=== PATIENT | female | born 1990 | race Caucasian/White ===

== ENCOUNTER 2017-02-10 19:54 | Emergency (ER) | payer MEDICAID ==
[~2017-02-10] VITALS: Ht 167.6 cm; Wt 56.0 kg
[2017-02-10 20:01] VITALS: Ht 167.6 cm; Wt 56.0 kg
[2017-02-10] MEDS ORDERED: ACETAMINOPHEN 325 MG TAB PO STA (21:01)
[2017-02-10 21:54] LABS: ADD UMIC NO; UR ASCORBIC ACID 20 mg/dL (NEGATIVE); UR BILIRUBIN (Dip) NEGATIVE (NEGATIVE); UR BLOOD (Dip) NEGATIVE (NEGATIVE); UR CLARITY SLIGHTLY CLOUDY (CLEAR); UR COLOR YELLOW (YELLOW); UR GLUCOSE (Dip) NEGATIVE (NEGATIVE); UR KETONES (Dip) NEGATIVE (NEGATIVE); UR LEUKOCYTE ESTERASE (Dip) NEGATIVE Leu/ul (NEGATIVE); UR MUCUS FEW /HPF (NONE SEEN); UR NITRITE (Dip) NEGATIVE (NEGATIVE); UR RBC 2 /HPF (0-5); UR SPECIFIC GRAVITY (Dip) 1.024 (1.003-1.030); UR SQUAMOUS EPITHELIAL CELL FEW /HPF (FEW); UR TOTAL PROTEIN (Dip) NEGATIVE (NEGATIVE); UR UROBILINOGEN (Dip) NEGATIVE (NEGATIVE)
--- NOTE | 2017-02-10 21:54 | RADRPT ---
PROCEDURE: US OB. CLINICAL INDICATION: Size and dates , pelvic pain TECHNIQUE: Multiple sonographic images of the pelvis and gravid uterus were obtained. The images were reviewed on a PACS workstation. COMPARISON: No prior studies are available for comparison. FINDINGS: There is a single viable intrauterine gestation. Cardiac activity is present with 152 beats per min [place]. There is a transverse maternal left presentation. The placenta is anterior. There is no evidence for an abruption or placenta previa. Measurements were made in order to determine age. The results are as follows: BPD =4.7 cm HC =16.7 cm AC =14.4 cm FL =3.2 cm Estimated gestational age of approximately 19 weeks and 6 days based on ultrasound measurements. Clinical age: 19 weeks and 2 days. The estimated date of delivery is 07/01/17, based on ultrasound measurements. The EFW = 317 g, 78%, based on LMP age. RPTAT: AA IMPRESSION: Single viable intrauterine gestation of approximately 19 weeks and 6 days based on ultrasound measu rements. .Fran Guidry MD, MD Date Time Electronically viewed and signed by .Fran Guidry MD, on 02/10/2017 21:53 .S/
[2017-02-10 21:55] LABS: BASOPHILS % 0.2 % (0.0-2.0); EOSINOPHILS # 0.1 10^3/ul (0.0-0.5); EOSINOPHILS % 0.5 % (0.0-7.0); HEMATOCRIT 35.8 % (37.0-47.0); HEMOGLOBIN 12.1 g/dl (12.0-16.0); LYMPHOCYTES # 2.2 10^3/ul (0.8-2.9); MEAN CORPUSCULAR HEMOGLOBIN 30.6 pg (29.0-33.0); MEAN CORPUSCULAR HGB CONC 33.8 g/dl (32.0-37.0); MEAN CORPUSCULAR VOLUME 90.6 fl (82.0-101.0); MEAN PLATELET VOLUME 11.1 fl (7.4-10.4); MONOCYTE # 0.5 10^3/ul (0.3-0.9); MONOCYTES % 4.4 % (0.0-11.0); NEUTROPHIL # 9.4 10^3/ul (1.6-7.5); NEUTROPHILS % 76.4 % (39.0-77.0); PLATELET COUNT 225 10^3/UL (140-415); RED BLOOD COUNT 3.95 10^6/ul (4.20-5.40); RED CELL DISTRIBUTION WIDTH 12.7 % (11.5-14.5); WHITE BLOOD COUNT 12.3 10^3/ul (4.8-10.8)
[2017-02-10 22:16] LABS: ALBUMIN 3.7 g/dl (3.3-4.9); ALBUMIN/GLOBULIN RATIO 1.27; BILIRUBIN,INDIRECT 0.1 mg/dl (0-1.1); BILIRUBIN,TOTAL 0.1 mg/dl (0.2-1.3); CALCIUM 8.5 mg/dl (8.4-10.2); CREATININE 0.58 mg/dl (0.44-1.00); POTASSIUM 3.9 mmol/L (3.5-5.1); TOTAL PROTEIN 6.6 g/dl (6.1-8.1)
[2017-02-10 23:06] VITALS: BP 94/52; PULSE 77; RESP 20
--- NOTE | 2017-02-11 00:32 | ERD ---
ER Documentation Chief Complaint Date/Time DATE: 02/11/17 TIME: 00:26 Chief Complaint 19 wks , pelvic pain today HPI This patient is a 27-year-old female who is , last menstrual cycle of 2016, reportedly 19 weeks , presenting to the emergency department with complaints of 6 out of 10 bilateral suprapubic pain which is intermittent. She has had the symptoms in the past during this . Her ACTING PROFESSOR physician is Dr. Luis Felipe Galindo. She denies vaginal discharge, bleeding, fevers, chills , urinary symptoms, or other symptoms currently. ROS All systems reviewed and are negative except as per history of present illness. Allergies Allergies: Coded Allergies: No Known Allergy (Unverified , 02/10/17) PMhx/Soc Medical and Surgical Hx: pt denies Medical Hx, pt denies Surgical Hx History of Surgery: Yes (appy) Anesthesia Reaction: No Hx Neurological Disorder: No Hx Respiratory Disorders: No Hx Cardiac Disorders: No Hx Psychiatric Problems: No Hx Miscellaneous Medical Probl: No Hx Alcohol Use: No Hx Substance Use: No Hx Tobacco Use: No Smoking Status: Never smoker Physical Exam Vitals Vital Signs Date Time Temp Pulse Resp B/P Pulse Ox O2 Delivery O2 Flow Rate FiO2 02/10/17 23:06 77 20 94/52 95 Room Air 02/10/17 20:01 98.2 78 20 101/64 99 Physical Exam Const: Nontoxic, well-appearing female in no acute distress. Head: Atraumatic Eyes: Normal Conjunctiva ENT: Normal External Ears, Nose and Mouth. Neck: Full range of motion..~ No meningismus. Resp: Clear to auscultation bilaterally Cardio: Regular rate and rhythm, no murmurs Abd: Soft, non tender, non distended. Normal bowel sounds. Mild bilateral suprapubic tenderness to palpation. No rebound tenderness or guarding. No McBurney's point tenderness. No right upper quadrant tenderness. Negative Chairez sign. Skin: No petechiae or rashes Back: No midline or flank tenderness Ext: No cyanosis, or edema Neur: Awake and alert Psych: Normal Mood and Affect Result Diagram: 02/10/17213702/10/172137 Results 24 hrs Laboratory Tests Test 02/10/17 20:57 02/10/17 21:38 Urine Color YELLOW Urine Clarity SLIGHTLY CLOUDY Urine pH 6.0 Urine Specific [place] 1.024 Urine Ketones NEGATIVEmg/dL Urine Nitrite NEGATIVEmg/dL Urine Bilirubin NEGATIVEmg/dL Urine Urobilinogen NEGATIVEmg/dL Urine Leukocyte Esterase NEGATIVELeu/ul Urine Microscopic RBC 2/HPF Urine Microscopic WBC 0/HPF Urine Squamous Epithelial Cells FEW/HPF Urine Calcium Oxalate Crystals FEW/HPF Urine Mucus FEW/HPF Urine Hemoglobin NEGATIVEmg/dL Urine Glucose NEGATIVEmg/dL Urine Total Protein NEGATIVEmg/dl White Blood Count 12.310^3/ul Red Blood Count 3.9510^6/ul Hemoglobin 12.1g/dl Hematocrit 35.8% Mean Corpuscular Volume 90.6fl Mean Corpuscular Hemoglobin 30.6pg Mean Corpuscular Hemoglobin Concent 33.8g/dl Red Cell Distribution Width 12.7% Platelet Count 58096^3/UL Mean Platelet Volume 11.1fl Neutrophils % 76.4% Lymphocytes % 18.0% Monocytes % 4.4% Eosinophils % 0.5% Basophils % 0.2% Nucleated Red Blood Cells % 0.0/100WBC Neutrophils # 9.410^3/ul Lymphocytes # 2.210^3/ul Monocytes # 0.510^3/ul Eosinophils # 0.110^3/ul Basophils # 0.010^3/ul Nucleated Red Blood Cells # 0.010^3/ul Sodium Level 136mmol/L Potassium Level 3.9mmol/L Chloride Level 106mmol/L Carbon Dioxide Level 25mmol/L Anion Gap 9 Blood Urea Nitrogen 10mg/dl Creatinine 0.58mg/dl Glucose Level 82mg/dl Calcium Level 8.5mg/dl Total Bilirubin 0.1mg/dl Direct Bilirubin 0.00mg/dl Indirect Bilirubin 0.1mg/dl Aspartate Amino Transf (AST/SGOT) 23IU/L Alanine Aminotransferase (ALT/SGPT) 23IU/L Alkaline Phosphatase 38IU/L Total Protein 6.6g/dl Albumin 3.7g/dl Globulin 2.90g/dl Albumin/Globulin Ratio 1.27 Beta HCG, Quantitative 48529.0mIU/ml Current Medications Medications (Trade) Dose Ordered Sig/Jed Route PRN Reason Start Time Stop Time Status Last Admin Dose Admin Acetaminophen (Tylenol Tab) 650 mg ONCE STAT PO 02/10/17 21:01 02/10/17 21:02 DC 02/10/17 21:32 Procedures/MDM EMERGENCY DEPARTMENT COURSE / MEDICAL DECISION MAKING: This is a 27-year-old female who comes to the emergency room secondary to complaints of pelvic pain The patient was given p.o. Tylenol in the department. On re-evaluation, the patient was feeling improved. Lab results reviewed. CBC: Slight leukocytosis with white count of 12.3, no sign of anemia. Chemistry: Within normal limits UA: Not concerning for urinary tract infection Beta-hC, consistent with term of . Radiology: PROCEDURE: US OB. CLINICAL INDICATION: Size and dates , pelvic pain TECHNIQUE: Multiple sonographic images of the pelvis and gravid uterus were obtained. The images were reviewed on a PACS workstation. COMPARISON: No prior studies are available for comparison. FINDINGS: There is a single viable intrauterine gestation. Cardiac activity is present with 152 beats per minute. There is a transverse maternal left presentation. The placenta is anterior. There is no evidence for an abruption or placenta previa. Measurements were made in order to determine age. The results are as follows: BPD = 4.7 cm HC = 16.7 cm AC = 14.4 cm FL = 3.2 cm Estimated gestational age of approximately 19 weeks and 6 days based on ultrasound measurements. Clinical age: 19 weeks and 2 days. The estimated date of delivery is 07/01/17, based on ultrasound measurements. The EFW = 317 g, 78%, based on LMP age. RPTAT: AA IMPRESSION: Single viable intrauterine gestation of approximately 19 weeks and 6 days based on ultrasound measurements. .Fran Guidry MD, MD Date Time Electronically viewed and signed by .Fran Guidry MD, on 02/10/2017 21: 53 The primary diagnosis is pelvic pain complicating . I have low suspicion for acute abdomen, ectopic , tubo-ovarian abscess , ovarian torsion, sepsis, or other emergent conditions at this time. The patient's symptoms have stabilized in the department. She is feeling improved on reevaluation. All lab and imaging studies were shared with the patient and she was given copies. She states she will follow-up with her OB/ [facility] physician tomorrow. She is to return immediately for any new or worsening symptoms. Discharge: I have discussed the lab results and diagnostic findings with the patient and answered any questions or concerns. The patient was advised to followup with their PMD in 1-2 days and to return to the Emergency Department if there are any new or worsening symptoms. The patient understood and agreed with the diagnosis, treatment and plan. The patient is stable for discharge at this time. Departure Diagnosis: Primary Impression: Pelvic pain complicating Trimester: second trimester Qualified Code: O26.892 - Pelvic pain affecting in second trimester, antepartum Condition: Fair Patient Instructions: Pelvic Pain In : Unclear (2-3 Trimester) Referrals: COMMUNITY CLINICS YOU HAVE RECEIVED A MEDICAL SCREENING EXAM AND THE RESULTS INDICATE THAT YOU DO NOT HAVE A CONDITION THAT REQUIRES URGENT TREATMENT IN THE EMERGENCY DEPARTMENT. FURTHER EVALUATION AND TREATMENT OF YOUR CONDITION CAN WAIT UNTIL YOU ARE SEEN IN YOUR DOCTORS OFFICE WITHIN THE NEXT 1-2 DAYS. IT IS YOUR RESPONSIBILITY TO MAKE AN APPOINTMENT FOR FOLOW-UP CARE. IF YOU HAVE A PRIMARY DOCTOR --you should call your primary doctor and schedule an appointment IF YOU DO NOT HAVE A PRIMARY DOCTOR YOU CAN CALL OUR PHYSICIAN REFERRAL HOTLINE AT IF YOU CAN NOT AFFORD TO SEE A PHYSICIAN YOU CAN CHOSE FROM THE FOLLOWING [facility] [address] [facility]. [facility] [address] [facility] [address] [facility]. [facility] [address] [facility]. [facility] [phone] [address] [facility]. [facility]. [address] DAYNE GONZALEZ ACTING PROF[place] [address] [facility] [address] [place] [address] OFFICE FAX LUDIN STEVENS [address] [place] [address] [address] [address] [place] [address] LISBET MCHUGHCM [address] [facility], [address], [place] [address] KEKE ARELLANO [address] [address] [facility], [place] [address] [facility] [address] [place] [address] [address] [facility], [facility] [id number] - MICHELE LEZAMAA [address] [facility] [address] [address]URON, MARY [address] [facility]. [address], [facility] [address] [address], [facility] [address] [place], [place] [address] Additional Instructions: Follow up with your PCP within the next 1-3 days for a repeat evaluation. If you require a referral to a specialist, your Primary Care Provider may be able to provide this for you. In most patient cases, a referral is not required. If you have further questions regarding this matter, please ask your Primary Care Provider. Return the the emergency department immediately if symptoms worsen or change. If you have any questions regarding medications, ask your pharmacist or us before you leave. If any adverse reactions, occur while taking your medications, discontinue the treatment and return to the emergency department immediately. If any new or worsening symptoms, uncontrolled fevers, or other unexplained symptoms occur, return to the emergency department immediately. Take your medications as directed, and complete the entire course of treatment. SHIRLEY LUA PA-C Feb 11, 2017 00:32
== END 2017-02-10 23:07 | disposition home or self-care (01) ==
LOC: FTE 19:54
DX: O26.892 Other specified pregnancy related conditions, second trimester (principal); R10.2 Pelvic and perineal pain; Z3A.19 19 weeks gestation of pregnancy
CPT/HCPCS: 36415; 76805; 80053; 81001; 84702; 85025; 86900; 86901; 87086; Z7502; Z7610; 81003